=== PATIENT | male | born 1955 | race Hispanic/Latino ===

== ENCOUNTER 2017-05-14 16:15 | Emergency (ER) | payer OTHER ==
[~2017-05-14] VITALS: Ht 172.7 cm; Wt 72.6 kg
[2017-05-14] MEDS ORDERED: HYDROCODONE/APAP 10MG-325MG TAB PO ONE (16:30)
[2017-05-14] MEDS ORDERED: CEFAZOLIN SOD 1 GM in WATER STERILE 10ML VIAL 10 ML IM SCH (16:30)
[2017-05-14] MEDS ORDERED: TETANUS/DIPHTHERIA TOX ADULT 0.5 ML SYR IM ONE (16:30)
[2017-05-14] MEDS ORDERED: CEFAZOLIN SOD 1 GM VIAL IV ONE (17:00)
--- NOTE | 2017-05-14 18:12 | Diagnostic Imaging Report ---
Right first digit - 3 views HISTORY: Pain. COMPARISON: None available. FINDINGS: Bones: No acute displaced fracture. No expansile lytic or sclerotic lesion. Joints: The joint spaces are well-maintained. No dislocation. Soft tissues: The soft tissues appear unremarkable. IMPRESSION: No acute radiographic abnormality. Signed by: Dr. Ras Bruno M.D. on 05/14/2017 6:09 PM
[2017-05-14] MEDS ORDERED: TETANUS/DIPHTHERIA TOX ADULT 0.5 ML SYR ONE (20:15)
[2017-05-14] MEDS ORDERED: LIDOCAINE HCL 1% LOCAL INJ 20 ML VIAL ONE (20:16)
[2017-05-14] MEDS ORDERED: CEFAZOLIN SOD 1 GM VIAL ONE (20:16)
[2017-05-14] MEDS ORDERED: CEFAZOLIN SOD 1 GM VIAL IM STA (20:19)
== END 2017-05-14 21:00 | disposition home or self-care (01) ==
LOC: ER 16:15
DX: S61.210A Laceration without foreign body of right index finger without damage to nail, initial encounter (principal); X58.XXXA Exposure to other specified factors, initial encounter; Y93.89 Activity, other specified; Y99.0 Civilian activity done for income or pay
CPT/HCPCS: 12001; 73140; 90714; 90471; 99283; J0690; J2001